=== PATIENT | male | born 1990 | race Caucasian/White ===

== ENCOUNTER 2016-05-12 11:57 | Emergency (ER) | payer OTHER ==
[2016-05-12] MEDS ORDERED: ONDANSETRON 4 MG/2 ML VIAL IVP STA (13:41)
[2016-05-12] MEDS ORDERED: SODIUM CHLORIDE 0.9% 1,000 ML IV ONE (13:41)
[2016-05-12] MEDS ORDERED: ONDANSETRON 4 MG/2 ML VIAL ONE (13:43)
== END 2016-05-12 14:37 | disposition home or self-care (01) ==
DX: K52.9 Noninfective gastroenteritis and colitis, unspecified (principal)

== ENCOUNTER 2016-11-25 00:15 | Outpatient (CLI) | payer OTHER | END 2016-11-25 00:16 | disposition critical access hospital (66) | LOC: EMS 00:15 | PROVIDERS: ATTEND Surgery | DX: R09.89 Other specified symptoms and signs involving the circulatory and respiratory systems (principal) | CPT/HCPCS: A0425; A0427 ==

== ENCOUNTER 2016-11-25 00:29 | Emergency (ER) | payer OTHER ==
[2016-11-25 01:16] LABS: BASOPHILS % (AUTO) 0.4 %; EOSINOPHILS # (AUTO) 0.2 10^3/uL (0.0-0.7); EOSINOPHILS % (AUTO) 1.9 %; HCT - HEMATOCRIT 45.1 % (42.0-52.0); HGB - HEMOGLOBIN 15.1 g/dL (14.0-18.0); LYMPHOCYTES # (AUTO) 3.5 10^3/uL (1.5-3.5); LYMPHOCYTES % (AUTO) 27.3 %; MEAN CORPUSCULAR HEMOGLOBIN 27.6 pg (27.0-31.0); MEAN CORPUSCULAR HGB CONC 33.4 g/dL (32.0-36.0); MEAN CORPUSCULAR VOLUME 82.5 fL (80.0-94.0); MONOCYTES # (AUTO) 0.9 10^3/uL (0.0-1.0); MONOCYTES % (AUTO) 6.8 %; NEUTROPHILS # (AUTO) 8.2 10^3/uL (1.5-6.6); NEUTROPHILS % (AUTO) 63.6 %; NUCLEATED RED BLOOD CELLS AUTO 0.1 /100WBC; RED BLOOD COUNT 5.47 10^6/uL (4.70-6.10); RED CELL DISTRIBUTION WIDTH 14.4 % (12.0-15.0); UNCORRECTED WHITE BLOOD COUNT 12.9 x10^3/uL; WHITE BLOOD COUNT 12.9 x10^3/uL (4.8-10.8)
[2016-11-25 01:18] LABS: ALBUMIN/GLOBULIN RATIO 1.1 (1.0-2.2); BILIRUBIN,TOTAL 0.3 mg/dL (0.2-1.0); BUN - BLOOD UREA NITROGEN 20 mg/dL (6-20); CARBON DIOXIDE - CO2 24 mmol/L (21-32); CHLORIDE 104 mmol/L (101-111); GFR - MDRD 90 (>89); GLUCOSE 177 mg/dL (70-100); LIPASE 24 U/L (22-51); POTASSIUM 3.5 mmol/L (3.5-5.0); SALICYLATE < 6.0 mg/dL; SODIUM 140 mmol/L (135-145); TOTAL PROTEIN 7.9 g/dL (6.7-8.2)
[2016-11-25 01:20] LABS: ACETAMINOPHEN < 10 ug/mL (10-30)
--- NOTE | 2016-11-25 01:21 | XRAY Preliminary Report ---
Exam: XR Chest 2 View PA/LAT IMPRESSION: Normal 2-view chest radiography. [facility] SITE ID: [id number]
--- NOTE | 2016-11-25 01:24 | XRAY Report ---
EXAM: CHEST RADIOGRAPHY EXAM DATE: 11/25/2016 01:00 AM. CLINICAL HISTORY: Hypoxia post vomiting. COMPARISON: None. TECHNIQUE: 2 views. FINDINGS: Lungs/Pleura: No focal opacities evident. No pleural effusion. No pneumothorax. Normal volumes. Mediastinum: Heart and mediastinal contours are unremarkable. Other: None. IMPRESSION: Normal 2-view chest radiography. [facility] Referring Provider Line: [phone] SITE ID: [id number]
--- NOTE | 2016-11-25 01:26 | ED Physician Documentation ---
PD HPI OVERDOSE - Stated complaint Stated Complaint: OD - Chief complaint Chief Complaint: General - History obtained from History obtained from: Patient, Family, EMS - History of Present Illness Timing - onset: Today Subtance(s) ingested: Multiple Associated symptoms: Decreased responsiveness, Altered mental status Contributing factors: Accidental Similar symptoms before: Has not had sx before Recently seen: Not recently seen - Additional information Additional information: Patient is a 25 year old male with no significant past medical history who is presenting to the emergency department for altered mental status. according to patient and ems, patient states that he took his tramadol as prescribed today. he took two pills at three different times today. Patient states that he also drank some whiskey and took a few shots. Patient went out to his car and passed out. Patient's friend started cpr even though the patient was breathing and had a pulse. Patient was treated with 1.6mg of narcan and proceeded to vomit. Upon initial evaluation in the emergency department patient was awake, alert but tachycardic and hypoxic. Review of Systems Constitutional: denies: Fever, Chills Eyes: denies: Loss of vision, Photophobia Ears: denies: Ear pain Nose: denies: Rhinorrhea / runny nose, Congestion Throat: denies: Oral lesions / sores, Sore throat Cardiac: denies: Chest pain / pressure, Palpitations Respiratory: denies: Dyspnea, Cough, Wheezing GI: reports: Nausea, Vomiting. denies: Abdominal Pain Skin: denies: Abrasion (s), Laceration (s) Neurologic: denies: Generalized weakness, Focal weakness Psychiatric: denies: Depressed, Suicidal, Homicidal PD PAST MEDICAL HISTORY - Past Surgical History Past Surgical History: No - Allergies Allergies/Adverse Reactions: Allergies Allergy/AdvReac Type Severity Reaction Status Date / Time No Known Drug Allergies Allergy Verified 05/12/16 12:10 - Social History Does the pt smoke?: No Smoking Status: Never smoker Does the pt drink ETOH?: Yes Does the pt have substance abuse?: No - Immunizations Immunizations are current?: Yes PD ED PE NORMAL - Vitals Vital signs reviewed: Yes - General General: Alert and oriented X 3, No acute distress - HEENT HEENT: Atraumatic, PERRL - Neck Neck: Supple, no meningeal sign - Respiratory Respiratory: Clear bilaterally - Abdomen Abdomen: Soft, Non tender, Non distended - Derm Derm: Normal color, Warm and dry, No rash - Extremities Extremities: No deformity - Neuro Neuro: Alert and oriented X 3, manager client 2-12 intact, No motor deficit, No sensory deficit, Normal speech - Psych Psych: Normal mood, Normal affect Results - Vitals Vitals: Vital Signs - 24 hr 11/25/16 11/25/16 11/25/16 00:33 00:59 01:29 Temperature 36.5 C Heart Rate 136 H 127 H 134 H Respiratory 18 19 23 Rate Blood Pressure 158/114 H 134/89 H 145/96 H O2 Saturation 81 L 97 94 11/25/16 02:58 Temperature Heart Rate 126 H Respiratory 14 Rate Blood Pressure 146/89 H O2 Saturation 95 Oxygen O2 Source Room air Oxygen Flow Rate 3 - EKG (time done) 0058 Rate: Rate (enter#) (126) Rhythm: Sinus tachycardia [place]: Normal Intervals: Normal NE QRS: Normal Ischemia: Normal ST segments Compare to prior EKG: Old EKG unavailable - Labs Labs: Laboratory Tests 11/25/16 11/25/16 11/25/16 00:20 00:20 00:20 WBC 12.9 H RBC 5.47 Hgb 15.1 Hct 45.1 MCV 82.5 MCH 27.6 MCHC 33.4 RDW 14.4 Plt Count 278 MPV 8.0 Neut # 8.2 H Lymph # 3.5 [place] # 0.9 Eos # 0.2 Baso # 0.0 Absolute Nucleated RBC 0.01 Nucleated RBCs 0.1 Sodium 140 Potassium 3.5 Chloride 104 Carbon Dioxide 24 Anion Gap 12.0 BUN 20 Creatinine 1.0 Estimated GFR (MDRD) 90 Glucose 177 H Calcium 9.0 Total Bilirubin 0.3 AST 26 ALT 24 Alkaline Phosphatase 84 Troponin I < 0.04 Total Protein 7.9 Albumin 4.2 Globulin 3.7 Albumin/Globulin Ratio 1.1 Lipase 24 Salicylates < 6.0 Acetaminophen < 10 L Ethyl Alcohol 17.5 - Rads (name of study) chest x-ray Radiology: Final report received (no acute disease process) PD MEDICAL DECISION MAKING - ED course Complexity details: reviewed old records, reviewed results, re-evaluated patient , considered differential, d/w patient, d/w family ED course: Patient was seen and examined at bedside. Patient was awake and alert but was hypoxic. ekg was performed which showed sinus tach. Patient's arrived who stated that someone dropped off some pills which were "muscle relaxers" but were likely opiates. Patient was observed in the emergency department for over two hours. Patient's hypoxia resolved but he remained tachycardic. Patient wanted to leave with his . he was awake, alert and oriented. Patient understood the risks of leaving and signed out ama. Departure - Departure Disposition: 07 Against Medical Advice Clinical Impression: Overdose Condition: Stable Instructions: ED Overdose Accidental
[2016-11-25] MEDS ORDERED: ONDANSETRON ODT 4 MG TABLET TL STA (02:53)
[2016-11-25 02:59] VITALS: BP 146/89
[2016-11-25] MEDS ORDERED: ONDANSETRON ODT 4 MG TABLET ONE (02:59)
== END 2016-11-25 03:52 | disposition left against medical advice (07) ==
LOC: EDUNIT# → ED 00:29 → SUPCPDRO 00:29 → ED 03:52
DX: T50.901A Poisoning by unspecified drugs, medicaments and biological substances, accidental (unintentional), initial encounter (principal); R00.0 Tachycardia, unspecified
CPT/HCPCS: 36415; 71020; 80053; 80307; 80320; 80329; 83690; 84484; 85025; 93005; 99284; Q0162

== ENCOUNTER 2016-12-06 09:24 | Outpatient (CLI) | payer OTHER ==
--- NOTE | 2016-12-06 16:12 | MRI Report ---
EXAM: RIGHT ELBOW MRI WITHOUT CONTRAST EXAM DATE: 12/06/2016 10:03 a.m. CLINICAL HISTORY: AD hyperextended right arm playing softball, pain. COMPARISON: None. TECHNIQUE: Multiplanar, multisequence T1-weighted and fluid-sensitive sequences of the elbow without contrast. Other: None. FINDINGS: Bones: No fractures or subluxations. No marrow edema. No bone lesions. Articular Cartilage: Unremarkable. Ligaments: The lateral ulnar collateral and radial collateral ligament and annular ligaments are inta ct. The ulnar collateral ligament is torn. Tendons: Common flexor tendon shows a high-grade partial-thickness tear involving about 85% of the te ndon thickness. Surrounding edematous changes are identified. Common extensor tendon is unremarkable. The distal biceps, brachialis, and triceps tendons are unremarkable. Musculature: Small amount of proximal muscular edema within the flexor carpi ulnaris and flexor digit orum superficialis. Other: The cubital tunnel and ulnar nerve are unremarkable. No effusion. The subcutaneous tissues are unremarkable. IMPRESSION: 1. The ulnar collateral ligament is torn. The common flexor tendon shows a high-grade partial-thickne ss tear involving about 85% of the tendon thickness with surrounding edematous changes. There is also a small amount of edema within the proximal aspects of the flexor carpi ulnaris and flexor digitorum superficialis muscles. 2. Triceps, biceps brachialis and common extensor tendons appear unremarkable. 3. No bony abnormalities. [facility] MUSCULOSKELET[facility] SECTION Referring Provider Line: [phone] SITE ID: [id number]
== END 2016-12-06 09:25 | disposition home or self-care (01) ==
LOC: DI 09:24
PROVIDERS: ATTEND Nurse Practitioner Family
DX: M25.521 Pain in right elbow (principal); S53.441A Ulnar collateral ligament sprain of right elbow, initial encounter; S56.211A Strain of other flexor muscle, fascia and tendon at forearm level, right arm, initial encounter

== ENCOUNTER 2017-12-03 11:02 | Outpatient (CLI) | payer OTHER ==
--- NOTE | 2017-12-03 16:12 | MRI Report ---
Reason: PAIN IN LEFT FOOT Procedure Date: 12/03/2017 Accession Number: [id number] / [id number] Procedure: MRI - Foot LT W/O CPT Code: FULL RESULT: EXAM: LEFT MIDFOOT MRI WITHOUT CONTRAST EXAM DATE: 12/03/2017 11:48 AM. CLINICAL HISTORY: Left foot pain. Concern for fifth metatarsal fracture. COMPARISON: None. TECHNIQUE: Multiplanar, multisequence T1-weighted and fluid-sensitive sequences of the midfoot without contrast. Other: None. FINDINGS: Bones: No fractures or subluxations. No marrow edema. No bone lesions. Articular Cartilage: Unremarkable. Ligaments: The visualized intertarsal, intermetatarsal, and tarsometatarsal ligaments are intact. This includes the Lisfranc ligament. The visualized collateral ligaments are intact. Tendons: The flexor and extensor tendons are unremarkable. Musculature: No edema or fatty atrophy. Other: No effusions. The visualized portion of the tarsal tunnel is unremarkable. Small amount of fluid at the third intermetatarsal bursa. The subcutaneous tissues are unremarkable. IMPRESSION: 1. Small amount of fluid at the third intermetatarsal bursa. 2. Otherwise, unremarkable MRI of the left midfoot. No evidence of fifth metatarsal fracture. [facility]CULOSKELET[facility] SECTION
== END 2017-12-03 11:03 | disposition home or self-care (01) ==
LOC: DI 11:02
PROVIDERS: ATTEND Family Medicine
DX: M79.672 Pain in left foot (principal)

== ENCOUNTER 2018-07-05 22:22 | Outpatient (CLI) | payer OTHER | END 2018-07-05 22:23 | disposition critical access hospital (66) | LOC: EMS 22:22 | PROVIDERS: ATTEND Surgery | DX: T50.991A Poisoning by other drugs, medicaments and biological substances, accidental (unintentional), initial encounter (principal); R09.2 Respiratory arrest | CPT/HCPCS: A0425; A0427 ==

== ENCOUNTER 2018-07-05 22:37 | Inpatient (IN) | payer OTHER ==
[2018-07-05] MEDS ORDERED: SODIUM CHLORIDE 0.9% 1,000 ML IV ONE (22:55)
[2018-07-05] MEDS ORDERED: ALBUTEROL NEB 2.5 MG/3 ML INH STA ×2 (22:55→23:58)
[2018-07-05] MEDS ORDERED: LIDOCAINE VISCOUS 2% 15 ML UDC MM STA (22:56)
[2018-07-05] MEDS ORDERED: MAG HYDROX/AL HYDROX/SIMETH 30 ML UDC PO STA (22:56)
--- NOTE | 2018-07-05 22:56 | ED Physician Documentation ---
PD HPI ALTERED MENTAL STATUS - Stated complaint Stated Complaint: OD - Chief complaint Chief Complaint: MHE - History obtained from History obtained from: Patient, Friend, EMS - History of Present Illness Timing - onset: How many minutes ago (30) Timing - duration: Minutes Timing - details: Abrupt onset Quality / character: Unresponsive (The patient reportedly became very somnolent about 45 minutes after taking a couple of pain pills for his right arm. He abruptly became somnolent and sleepy and then unresponsive. There is no report of seizure activity. EMS was called and on arrival of the police first responders, they found the patient apneic. He was given Narcan intranasal and had bag valve mask respirations. EMS arrived and the patient was at that point just awakening abruptly as they started to put a oral pharyngeal airway in. He was then awake and conversant. This was just a couple of minutes after the i ntranasal Narcan so it seemed to be causative of his improvement. He has been alert and conversant on route. He is having a lot of coughing and is congested and hypoxic as well as tachycardic. The patient states he felt okay earlier in the day and had been doing some activity cleaning out a garage area or such and so his arm had had surgery a month ago was hurting him but otherwise he was feeling well. He had taken the pain medicines a month ago after his surgery without any problems. Subsequently has started on gabapentin 2 weeks ago and had not taken any oxycodone since starting the gabapentin.) Associated symptoms: Dyspnea, Cough (since awakening from the syncope, not prior.). No: Fever, Headache Contributing factors: Recent med change (had Gabapentin 300 mg 4 times daily started 2 weeks ago. He had not had any pain pills until today since starting the gabapentin). No: Diabetic, Recent illness, Intoxicated, Substance abuse [place] status: Alert and oriented X 3, Ambulatory Treatment LEAD FRONT END DEVELOPER: Accucheck, Narcan, Airway management Similar symptoms before: Has not had sx before Recently seen: Clinic, Surgery (right elbow a month ago) Review of Systems Constitutional: denies: Fever, Chills Nose: denies: Rhinorrhea / runny nose, Congestion Throat: denies: Sore throat Cardiac: denies: Chest pain / pressure Respiratory: reports: Dyspnea, Cough, Hemoptysis (mild since arrival to the ER.). denies: Wheezing GI: denies: Abdominal Pain, Nausea, Vomiting, Diarrhea Skin: denies: Rash, Lesions Neurologic: denies: Generalized weakness, Focal weakness, Numbness PD PAST MEDICAL HISTORY - Past Medical History Past Medical History: No Cardiovascular: None Respiratory: None Neuro: None Endocrine/Autoimmune: None GI: None : None HEENT: None Psych: None Musculoskeletal: None, Other (right wlbow surgery a month ago) Derm: None - Past Surgical History Past Surgical History: Yes General: Other Ortho: Other - Allergies Allergies/Adverse Reactions: Allergies Allergy/AdvReac Type Severity Reaction Status Date / Time No Known Drug Allergies Allergy Verified 07/05/18 22:46 - Living Situation Living Arrangement: reports: At home - Social History Does the pt smoke?: Yes Smoking Status: Current every day smoker Does the pt drink ETOH?: Yes Does the pt have substance abuse?: No - Family History Family history: reports: Non contributory - Immunizations Immunizations are current?: Yes - POLST Patient has POLST: No PD ED PE NORMAL - Vitals Vital signs reviewed: Yes (hypoxic at 86-89%, improved with 4 lpm NC to 92%. Tachycardic 140s. ) - General General: Alert and oriented X 3, Well developed/nourished, Other (repetitive coughing with some tinge of blood, but clear otherwise. ) - HEENT HEENT: Ears normal, Pharynx benign, Other (no tongue nor lip lesions) - Neck Neck: Supple, no meningeal sign, No adenopathy - Cardiac Cardiac: No murmur, No rub. No: RRR (tachycardic at 140s) - Respiratory Respiratory: No respiratory distress. No: Clear bilaterally (fine crackle sounds both sides. Mild wheezing noted centrally. ) - Abdomen Abdomen: Soft, Non tender - Back Back: No CVA TTP - Derm Derm: Normal color - Extremities Extremities: No deformity, No tenderness to palpate, Normal ROM s pain, No edema, No calf tenderness / cord - Neuro Neuro: Alert and oriented X 3, No motor deficit, Normal speech Results - Vitals Vitals: Vital Signs - 24 hr 07/05/18 07/05/18 07/05/18 22:39 22:49 22:52 Temperature 36.8 C Heart Rate 142 H 142 H 144 H Respiratory 20 20 24 Rate Blood Pressure 157/105 H 157/105 H O2 Saturation 94 93 07/05/18 07/05/18 07/06/18 23:14 23:54 00:10 Temperature Heart Rate 149 H 138 H 142 H Respiratory 22 27 H 36 H Rate Blood Pressure 140/75 H O2 Saturation 92 95 07/06/18 07/06/18 07/06/18 00:20 00:36 01:37 Temperature Heart Rate 154 H 143 H 134 H Respiratory 26 H 31 H 26 H Rate Blood Pressure 122/85 H 115/56 L O2 Saturation 97 94 99 Oxygen O2 Source Simple Mask Oxygen Flow Rate 6 - Labs Labs: Laboratory Tests 07/05/18 07/05/18 07/05/18 23:00 23:00 23:00 WBC 19.2 H RBC 5.79 Hgb 16.3 Hct 48.2 MCV 83.3 MCH 28.2 MCHC 33.9 RDW 14.0 Plt Count 295 MPV 7.5 Neut # (Auto) 16.1 H Lymph # (Auto) 2.1 [place] # (Auto) 1.0 Eos # (Auto) 0.0 Baso # (Auto) 0.1 Absolute Nucleated RBC 0.01 Nucleated RBC % 0.0 Sodium 137 Potassium 3.3 L Chloride 104 Carbon Dioxide 23 Anion Gap 10.0 BUN 13 Creatinine 1.0 Estimated GFR (MDRD) 89 Glucose 152 H Calcium 8.4 L Total Bilirubin 0.4 AST 30 ALT 24 Alkaline Phosphatase 83 B-Natriuretic Peptide 11 Total Protein 7.4 Albumin 3.8 Globulin 3.6 Albumin/Globulin Ratio 1.1 Lipase 29 Urine Opiates Screen Ur Oxycodone Screen Urine Methadone Screen Ur Propoxyphene Screen Ur Barbiturates Screen Ur Tricyclics Screen Ur Phencyclidine Scrn Ur Amphetamine Screen U Methamphetamines Scrn U Benzodiazepines Scrn Urine Cocaine Screen U Cannabinoids Screen Ethyl Alcohol < 5.0 07/06/18 01:40 WBC RBC Hgb Hct MCV MCH MCHC RDW Plt Count MPV Neut # (Auto) Lymph # (Auto) [place] # (Auto) Eos # (Auto) Baso # (Auto) Absolute Nucleated RBC Nucleated RBC % Sodium Potassium Chloride Carbon Dioxide Anion Gap BUN Creatinine Estimated GFR (MDRD) Glucose Calcium Total Bilirubin AST ALT Alkaline Phosphatase B-Natriuretic Peptide Total Protein Albumin Globulin Albumin/Globulin Ratio Lipase Urine Opiates Screen NEGATIVE Ur Oxycodone Screen NEGATIVE Urine Methadone Screen NEGATIVE Ur Propoxyphene Screen NEGATIVE Ur Barbiturates Screen NEGATIVE Ur Tricyclics Screen NEGATIVE Ur Phencyclidine Scrn NEGATIVE Ur Amphetamine Screen POSITIVE H U Methamphetamines Scrn NEGATIVE U Benzodiazepines Scrn NEGATIVE Urine Cocaine Screen NEGATIVE U Cannabinoids Screen POSITIVE H Ethyl Alcohol - Rads (name of study) chest xray Radiology: Prelim report reviewed (diffuse infiltrative changes. No focal consolidation. ), EMP read contemporaneously, See rad report chest CT Radiology: Prelim report reviewed (bilateral widespread infiltrates c/w pneumonitis.), See rad report PD MEDICAL DECISION MAKING - ED course Complexity details: reviewed results (Chest x-ray shows widespread diffuse infiltrates which would be unusual for aspiration. Given the abrupt onset of trouble breathing subsequent to a hypoxic event with the Percocet, add consider the possibility of noncardiogenic pulmonary edema. He had been helping clean out her garage and such and says there was a lot of mold and dust so he could have had some underlying pneumonitis prior to the syncopal episode. However he denies feeling short of breath prior to it.), re-evaluated patient (He is slowly improving. Nebulizers allow for him to have increased sputum production. It is mostly clear phlegm with some blood tingeing. Consideration of posterior nasopharynx bleeding rather than bronchial though it does seem to be more in his sputum. His oxygenation slowly improved and is able to come down on the amount of supplemental oxygen. However he still remains quite tachycardic. About an hour and 10 minutes after arrival he started to get a little sleepy again and so was given a repeat dose of Narcan. He then woke up readily again. Given the consideration of the Percocet last since a few hours as well as the concern for noncardiogenic pulmonary edema from the narcotic effect, I would place him on Narcan drip to help benefit this. He was also given a dose of steroids for the appearance of pneumonitis given possible aspiration.), considered differential (He is awake and alert now after being apneic post normal dose of prescription oxycodone. He had also started on gabapentin 2 weeks ago and the not taking any pain pills since that time. Presume a combined effect of the 2-lead to a profound effect from the narcotic and subsequent apnea and hypoxia. He did have bag valve mask ventilations for a minute or so or more. He is now hypoxic and tachycardic but with alertness and able to speak. He is coughing up some sputum with blood tingeing. I am concerned for aspiration pneumonitis. Also consider the possibility of noncardiogenic pulmonary edema given some diffuse haziness on chest x-ray. His BNP is not elevated but that would be consistent with noncardiogenic cause. He was starting to get a little bit sleepy again after about an hour and 20 minutes on arrival and given a repeat dose of Narcan. Given the consideration for noncardiogenic pulmonary edema, I might consider a Narcan drip. I will talk with the hospitalist.), d/w patient Departure - Departure Disposition: 66 [facility] DC/Xfer Clinical Impression: Aspiration pneumonitis, Hypoxia Syncope Qualifiers: Syncope type: unspecified Qualified Code(s): R55 - Syncope and collapse Opiate or related narcotic overdose Qualifiers: Encounter type: initial encounter Injury intent: accidental or unintentional Qualified Code(s): T40.601A - Poisoning by unspecified narcotics, accidental (unintentional), initial encounter Condition: Stable Record reviewed to determine appropriate education?: Yes
[2018-07-05 23:07] LABS: BASOPHILS # (AUTO) 0.1 10^3/uL (0.0-0.1); BASOPHILS % (AUTO) 0.4 %; EOSINOPHILS % (AUTO) 0.1 %; HGB - HEMOGLOBIN 16.3 g/dL (14.0-18.0); LYMPHOCYTES # (AUTO) 2.1 10^3/uL (1.5-3.5); LYMPHOCYTES % (AUTO) 10.7 %; MEAN CORPUSCULAR HEMOGLOBIN 28.2 pg (27.0-31.0); MEAN CORPUSCULAR HGB CONC 33.9 g/dL (32.0-36.0); MEAN CORPUSCULAR VOLUME 83.3 fL (80.0-94.0); MEAN PLATELET VOLUME 7.5 fL (7.4-11.4); MONOCYTES % (AUTO) 5.3 %; NEUTROPHILS # (AUTO) 16.1 10^3/uL (1.5-6.6); NEUTROPHILS % (AUTO) 83.5 %; PLT - PLATELET COUNT 295 10^3/uL (130-450); RED BLOOD COUNT 5.79 10^6/uL (4.70-6.10); WHITE BLOOD COUNT 19.2 x10^3/uL (4.8-10.8)
[2018-07-05 23:19] LABS: ALBUMIN 3.8 g/dL (3.2-5.5); ALBUMIN/GLOBULIN RATIO 1.1 (1.0-2.2); ALKALINE PHOSPHATASE 83 IU/L (42-121); ALT ALANINE AMINOTRANSFERASE 24 IU/L (10-60); AST ASPARTATE AMINOTRANSFERASE 30 IU/L (10-42); BILIRUBIN,TOTAL 0.4 mg/dL (0.2-1.0); BUN - BLOOD UREA NITROGEN 13 mg/dL (6-20); CALCIUM 8.4 mg/dL (8.5-10.3); CARBON DIOXIDE - CO2 23 mmol/L (21-32); CHLORIDE 104 mmol/L (101-111); GFR - MDRD 89 (>89); GLUCOSE 152 mg/dL (70-100); LIPASE 29 U/L (22-51); SODIUM 137 mmol/L (135-145); TOTAL PROTEIN 7.4 g/dL (6.7-8.2)
--- NOTE | 2018-07-05 23:20 | XRAY Report ---
Reason: chest pain Procedure Date: 07/05/2018 Accession Number: [id number] / [id number] Procedure: XR - Chest 1 View X-Ray CPT Code: 52060 FULL RESULT: EXAM: CHEST RADIOGRAPHY EXAM DATE: 07/05/2018 11:04 PM. CLINICAL HISTORY: Chest pain. COMPARISON: CHEST 2 VIEW PA/LAT 11/25/2016 12:45 AM. TECHNIQUE: 1 view. FINDINGS: Lungs/Pleura: Bilateral predominantly upper lobe infiltrates. No effusion or pneumothorax. Mediastinum: Within exam limitations, the cardiomediastinal contour is normal. Other: None. IMPRESSION: Bilateral airspace disease, with upper lobe predominance. No cardiomegaly or effusion. [facility]
[2018-07-05] MEDS ORDERED: DEXAMETHASONE 10 MG/ML VIAL IVP STA (23:48)
[2018-07-05] MEDS ORDERED: NALOXONE 0.4 MG/ML VIAL IVP STA (23:58)
[2018-07-06] MEDS ORDERED: NALOXONE 2 MG in SODIUM CHLORIDE 0.9% 495 ML IV STA (00:18)
[2018-07-06] MEDS ORDERED: NALOXONE 0.4 MG/ML VIAL ONE ×2 (00:33→00:35)
[2018-07-06] MEDS ORDERED: IOVERSOL 320 100 ML VIAL IVP ONE ×2 (00:47→01:32)
[2018-07-06 01:42] LABS: MUDS CUTOFF CONCENTRATIONS CUTOFF CONC BELOW:
--- NOTE | 2018-07-06 01:43 | CT Report ---
Reason: cough/ ? aspiration pneumonitis Procedure Date: 07/06/2018 Accession Number: [id number] / [id number] Procedure: CT - CHEST W CPT Code: FULL RESULT: EXAM: CT CHEST EXAM DATE: 07/06/2018 01:30 AM. CLINICAL HISTORY: Cough/ ? aspiration pneumonitis. COMPARISONS: None. TECHNIQUE: Routine helical CT imaging was performed through the chest. IV contrast: 80 mL Optiray 320. Reconstructions: Coronal and sagittal. In accordance with CT protocol optimization, one or more of the following dose reduction techniques were utilized for this exam: automated exposure control, adjustment of mA and/or KV based on patient size, or use of iterative reconstructive technique. FINDINGS: Lungs/Pleura: Widespread bilateral infiltrates, with upper lobe predominance. No effusion or pneumothorax. Mediastinum: Normal. No adenopathy or masses. The heart and great vessels are normal. Bones: Unremarkable. Visualized Abdomen: Unremarkable. Other: None. IMPRESSION: Bilateral widespread infiltrates, with upper lobe predominance. The distribution would be atypical for aspiration. Differential considerations would include hypersensitivity pneumonitis, eosinophilic granuloma, atypical infections, sarcoidosis, silicosis. [facility]
[2018-07-06 02:02] LABS: AMPHETAMINE SCREEN,URINE POSITIVE (NEGATIVE); BENZODIAZEPINES SCREEN, URINE NEGATIVE (NEGATIVE); COCAINE SCREEN URINE NEGATIVE (NEGATIVE); METHADONE SCREEN, URINE NEGATIVE (NEGATIVE); METHAMPHETAMINES SCREEN, URINE NEGATIVE (NEGATIVE); OPIATE SCREEN, URINE NEGATIVE (NEGATIVE); OXYCODONE SCREEN, URINE NEGATIVE (NEGATIVE); PROPOXYPHENE SCREEN, URINE NEGATIVE (NEGATIVE); TRICYCLIC ANTIDEPRESSANT,URINE NEGATIVE (NEGATIVE)
[2018-07-06] MEDS ORDERED: PIPERACILLIN/TAZOBACTAM 3.375 GM in SODIUM CHLORIDE 0.9% MINIBAG 100 ML IV STA (02:07)
[2018-07-06] MEDS ORDERED: SODIUM CHLORIDE FLUSH 0.9% 10 ML SYRINGE IVP PRN (02:08)
[2018-07-06] MEDS ORDERED: ONDANSETRON 4 MG/2 ML VIAL IVP PRN (02:08)
[2018-07-06] MEDS ORDERED: ACETAMINOPHEN 325 MG TABLET PO PRN (02:08)
[2018-07-06] MEDS ORDERED: LORazepam 1 MG TABLET PO PRN (02:18)
[2018-07-06 02:43] LABS: BASOPHILS % (AUTO) 0.3 %; HGB - HEMOGLOBIN 16.2 g/dL (14.0-18.0); LYMPHOCYTES % (AUTO) 1.9 %; MEAN CORPUSCULAR HGB CONC 33.7 g/dL (32.0-36.0); MEAN CORPUSCULAR VOLUME 83.1 fL (80.0-94.0); MEAN PLATELET VOLUME 7.5 fL (7.4-11.4); MONOCYTES % (AUTO) 5.3 %; NEUTROPHILS % (AUTO) 92.5 %; PLT - PLATELET COUNT 279 10^3/uL (130-450); RED BLOOD COUNT 5.77 10^6/uL (4.70-6.10); RED CELL DISTRIBUTION WIDTH 14.4 % (12.0-15.0); WHITE BLOOD COUNT 30.8 x10^3/uL (4.8-10.8)
[2018-07-06 02:50] LABS: INR 1.2 (0.8-1.2); PT - PROTHROMBIN TIME 13.3 secs (9.9-12.6)
[2018-07-06 02:55] LABS: ALBUMIN 4.2 g/dL (3.2-5.5); ALBUMIN/GLOBULIN RATIO 1.2 (1.0-2.2); BILIRUBIN,TOTAL 0.8 mg/dL (0.2-1.0); CALCIUM 8.7 mg/dL (8.5-10.3); CREATININE 0.9 mg/dL (0.6-1.2); TOTAL PROTEIN 7.6 g/dL (6.7-8.2)
[2018-07-06] MEDS ORDERED: NALOXONE 2 MG in SODIUM CHLORIDE 0.9% 495 ML IV SCH (03:00)
[2018-07-06] MEDS ORDERED: MAGNESIUM SULFATE 2 GRAM 2 GM/50 ML BAG IV ONE (03:00)
[2018-07-06 03:06] LABS: ABNORMAL LYMPHS % (MANUAL) 0 %
[2018-07-06 03:07] LABS: BAND NEUTROPHILS % (MANUAL) 20 %; LYMPHOCYTES # (MANUAL) 0.3 10^3/uL (1.5-3.5); LYMPHOCYTES % (MANUAL) 1 %; MONOCYTES # (MANUAL) 1.5 10^3/uL (0.0-1.0); NEUTROPHILS % (MANUAL) 74 %
[2018-07-06 03:08] LABS: PLATELET ESTIMATE, MANUAL NORMAL (130-450,000) (NORMAL); RBC MORPHOLOGY (MULTIPLE) NORMAL APPEARANCE (NORMAL)
--- NOTE | 2018-07-06 03:41 | HISTORY & PHYSICAL EXAMINATION ---
Chief Complaint - Chief Complaint Chief Complaint: unresponsive History of Present Illness - Admitted From Admitted From:: [facility] ED - History Obtained From Records Reviewed: yes History obtained from: patient - History of Present Illness HPI Comment/Other: Patient seen on 07/06/18 at 00:20 am Patient is a 27 y/o male who presented to the ED via EMS. He was at home watching a video when he suddenly stopped breathing an passed out. He describes that one minute he was watching a video and the next minute EMS was waking him up. His friend who was sitting next to him called EMS. He was administered narcan nasally to which he responded. When EMS arrived the all started administering oxygenation using an ambu-bag. It appears he aspirated as a result. Upon arrival in the ED he was awake, however he has been hypoxic. Despite being on 4L oxygen via nasal canula, his O2Sat's drop to the 80's. He also slowly starts nodding of to sleep. Consequently he was placed on a narcan drip. He has also been tachycardic with a heart rate into the 150's. He has also been coughing up aspirated content which appears mixed with frothy blood secretions. As a result of his presentation, he is being admitted for further management. He reports that he had been prescribe percocet 5/325 for an injury he sustained to his left elbow while playing soft ball. He was also put on gabapentin recently by his therapist for ?anxiety. His elbow has been hurting lately so he took 2 tablets of the pain medication. He denies chest pain or abdominal pain. He reports being nauseous History - Past Medical History Cardiovascular: reports: None Respiratory: reports: None Neuro: reports: None Endocrine/Autoimmune: reports: None GI: reports: None : reports: None HEENT: reports: None Psych: reports: Anxiety, ADD/ADHD Musculoskeletal: reports: None, Other (right wlbow surgery a month ago) Derm: reports: None MRSA Hx?: No - Past Surgical History General: reports: Other Ortho: reports: Other (left elbow) - Family & Social History Living arrangement: At home Living Situation: With spouse/s.o. Social History Notes: He is in the [employer]. lives at home with his . He smokes 1/2 ppd for a couple years now. He says he drinks 2-3 drinks a week. However it is reported that he drink heavily daily. This is as a coping mechanism because he is going through some marital problems. He uses marijuana - Substance History Use: Uses substance without health or social issues: Alcohol - POLST Patient has POLST: No POLST Status: Full Code Meds/Allgy - Allergies Allergies/Adverse Reactions: Allergies Allergy/AdvReac Type Severity Reaction Status Date / Time No Known Drug Allergies Allergy Verified 07/05/18 22:46 Review of Systems - Constitutional Constitutional: denies: Fatigue, Fever, Chills, Diaphoresis, Night sweats - Eyes Eyes: denies: Blurred vision, Vision loss, Dipolpia - Ears, Nose & Throat Ears, Nose & Throat: denies: Vertigo, Nasal pain, Nasal discharge, Sore throat, Hoarseness - Cardiovascular Cariovascular: denies: Irregular heart rate, Palpitations, Chest pain, Edema, Lightheadedness, Exertional dyspnea, Decr. exercise tolerance - Respiratory Respiratory: reports: Cough, Sputum production, Wheezing, Hemoptysis, SOB at rest - Gastrointestinal Gastrointestinal: reports: Nausea, Vomiting. denies: Abdominal pain, Abdominal distention, Constipation, Diarrhea, Reflux/heartburn - Genitourinary Genitourinary: denies: Dysuria, Frequency, Urgency, Hematuria - Musculoskeletal Musculoskeletal: reports: Joint pain (left elbow). denies: Back pain - Integumentary Integumentary: denies: Rash, Pruritis, Lesions - Neurological Neurological: denies: General weakness, Headache, Dizziness - Psychiatric Psychiatric: reports: Depression, Anxiety - Endocrine Endocrine: denies: Polyuria, Polydypsia - Hematologic/Lymphatic Hematologic/Lymphatic: denies: Anemia, Bruising, Petechiae Prior Level of Functionality: Pt is in the [employer] He is independent of activities of daily living Exam - Vital Signs Vital Signs: Vital Signs x48h Temp Pulse Resp BP Pulse Ox 07/06/18 02:24 144 H 26 H 133/86 H 28 L 07/06/18 01:37 134 H 26 H 99 07/06/18 00:36 143 H 31 H 115/56 L 94 07/06/18 00:20 154 H 26 H 122/85 H 97 07/06/18 00:10 142 H 36 H 95 07/05/18 23:54 138 H 27 H 140/75 H 92 07/05/18 23:14 149 H 22 07/05/18 22:52 144 H 24 07/05/18 22:49 142 H 20 157/105 H 93 07/05/18 22:39 36.8 C 142 H 20 157/105 H 94 - Physical Exam General Appearance: positive: Alert, Moderate distress, Lethargic Eyes Bilateral: positive: Normal inspection, PERRL, EOMI ENT: positive: ENT inspection nml, Pharynx nml, No signs of dehydration Neck: positive: Nml inspection, No JVD, Trachea midline Respiratory: positive: Chest non-tender, Wheezes. negative: Breath sounds nml Cardiovascular: positive: No murmur, Tachycardia Abdomen: positive: Non-tender, No organomegaly, Nml bowel sounds, No distention. negative: Guarding, Rebound Back: positive: Nml inspection Skin: positive: Color nml, No rash, Warm, Dry Extremities: positive: Non-tender, Nml appearance, No pedal edema Neurologic/Psychiatric: positive: Oriented x3 Sepsis Event Note (H) - Evaluation Current Stage of Sepsis: Sepsis Possible source of Sepsis: positive: Pulmonary - Sepsis Criteria Sepsis Criteria: Recorded Heart Rate greater than 90 bpm, WBC count greater than 12,000 or less than 4000 Conclusion/Plan - Problem List (1) Opiate or related narcotic overdose Conclusion/Plan: It is thought that patient's combination of percocet and gabapentin resulted in him passing out The absence of opiates in the urine drug screen is likely as a result of a short time between ingestion and testing. Patient on a narcan drip and under close monitoring in the ICU Qualifiers: Encounter type: initial encounter Injury intent: accidental or unintentional Qualified Code(s): T40.601A - Poisoning by unspecified narcotics, accidental (unintentional), initial encounter (2) Aspiration pneumonitis Conclusion/Plan: Likely 2/2 to syncopal episode and resuscitation attempt Patient given dexamethasone in the ED. Solumedrol 40mg IV tid ordered Blood cultures drawn Patient receiving zosyn q6hrs for potential aspiration pneumonia On supplemental oxygen (3) ADHD (attention deficit hyperactivity disorder) Conclusion/Plan: On adderall (4) Alcohol abuse Conclusion/Plan: CIWA ordered in anticipation of potential withdrawal - Lab Results Fish Bones: 07/06/18 02:38 07/06/18 02:38 Core Measures - Anticipated LOS I expect patient to be DC'd or transferred within 96 hours.: Yes - DVT/VTE - Prophylaxis VTE/DVT Device ordered at admit?: Yes VTE/DVT Prophylaxis med ordered at admit?: No Not Ordered - Medical Reason: Contraindicated
[2018-07-06] MEDS: PIPERACILLIN/TAZOBACTAM 3.375 GM in SODIUM CHLORIDE 0.9% MINIBAG 100 ML IV SCH ×2 (04:55→10:45)
[2018-07-06] MEDS ORDERED: methylPREDNISolone SUCCINATE 40 MG/ML VIAL IVP SCH (06:00)
[2018-07-06 07:28] LABS: BASOPHILS % (AUTO) 0.1 %; HGB - HEMOGLOBIN 15.9 g/dL (14.0-18.0); LYMPHOCYTES % (AUTO) 1.9 %; MEAN CORPUSCULAR HEMOGLOBIN 27.7 pg (27.0-31.0); MEAN CORPUSCULAR HGB CONC 32.5 g/dL (32.0-36.0); MEAN CORPUSCULAR VOLUME 85.3 fL (80.0-94.0); MEAN PLATELET VOLUME 8.6 fL (7.4-11.4); MONOCYTES % (AUTO) 2.2 %; NEUTROPHILS % (AUTO) 95.8 %; PLT - PLATELET COUNT 287 10^3/uL (130-450); RED BLOOD COUNT 5.72 10^6/uL (4.70-6.10); RED CELL DISTRIBUTION WIDTH 14.3 % (12.0-15.0); WHITE BLOOD COUNT 31.7 x10^3/uL (4.8-10.8)
[2018-07-06 07:29] LABS: CALCIUM 8.8 mg/dL (8.5-10.3); CREATININE 0.9 mg/dL (0.6-1.2)
[2018-07-06 07:33] LABS: ABNORMAL LYMPHS % (MANUAL) 0 %
[2018-07-06] MEDS ORDERED: SODIUM CHLORIDE FLUSH 0.9% 10 ML SYRINGE IVP SCH (09:00)
[2018-07-06] MEDS ORDERED: MULTIVITAMIN 10 ML, THIAMINE INJ 100 MG, FOLIC ACID INJ 1 MG in SODIUM CHLORIDE 0.9% 1,... IV SCH (09:00)
[2018-07-06 09:33] LABS: BAND NEUTROPHILS % (MANUAL) 10 %; LYMPHOCYTES % (MANUAL) 3 %; NEUTROPHILS # (MANUAL) 29.8 10^3/uL (1.5-6.6); NEUTROPHILS % (MANUAL) 84 %
[2018-07-06 09:34] LABS: DIFFERENTIAL COMMENT MANUAL DIFFERENTIAL
--- NOTE | 2018-07-06 12:13 | Discharge Plan ---
Discharge Plan Disposition: Home, Self Care Condition: Good Prescriptions: Amox/Clav 875/125 [Augmentin] 1 each PO Q12H #20 tablet busPIRone [Buspar] 10 mg PO TID #90 tablet Prednisone 10 mg PO DAILY #14 tab.ds.pk Saccharomyces Boulardii [Florastor] 250 mg PO BID #60 capsule Diet: Regular Activity Restrictions: No Restrictions Shower Restrictions: No Driving Restrictions: No Additional Instructions or Follow Up instructions: You were admitted for an unresponsive episode and treated for aspiration pneumonia from a witnessed aspiration event. Please continue the antibiotics at home for the next 10 days. The cause of this episode is concerning and appears to be a separate problem from your pneumonia. A likely triggering culprit is the gabapentin, so I have changed this to Buspar The pattern of infiltrates on your imaging and your very high white blood cell count is suspicious for tuberculosis. You will need 3 negative sputum samples to rule this out, and in the meantime, plan on wearing a mask when you are around people. This will need close follow up with a specialist. I have spoken to a chief psychologist about your case. Please see your PCP within a few days to obtain further sputum samples. No Smoking: If you smoke, Please STOP! Call for help.
[2018-07-06 12:21] VITALS: BP 143/87
[2018-07-06] MEDS ORDERED: busPIRone 5 MG TABLET PO SCH (13:00)
--- NOTE | 2018-07-06 13:44 | DISCHARGE SUMMARY ---
Discharge Summary Admit Date: 07/06/18 Discharge Date: 07/06/18 Discharging Provider: ALICJA Vaz Primary Care Provider: Bienvenido Gong Code Status: Attempt Resuscitation Condition at Discharge: Good Discharge Disposition: 01 Home, Self Care - DIAGNOSES Admission Diagnoses: Poisoning by unsp narcotics, accidental, init (T40.601A) Pneumonitis due to inhalation of food and vomit (J69.0) Attention-deficit hyperactivity disorder, unspecified type (F90.9) Alcohol abuse, uncomplicated (F10.10) Anxiety and depression (F41.9) Discharge Diagnoses with Status of Each Condition: Poisoning by unsp narcotics, accidental, init (T40.601A) Prescribed gabapentin, patient admitted to taking a narcotic, but none found in drug screening, resolved Pneumonitis due to inhalation of food and vomit (J69.0) Witnessed aspiration, imaging concerning for TB, so suggest 3 negative AFB, none collected upon discharge due to patient's urgency to leave. Continued on oral antibiotics, steroid taper for treatment of aspiration pneumonia Attention-deficit hyperactivity disorder, unspecified type (F90.9) chronic, stable Alcohol abuse, uncomplicated (F10.10) unconfirmed amount, no s/s of withdrawal Anxiety and depression (F41.9) situational, changed gabapentin to buspar due to events leading up to this admission in which he lost consciousness Tobacco dependence (F17.200) chronic, refused nicotine patch Marijuana dependence (F12.20) denies use, found in urine drug screen - HPI History of Present Illness: HPI per Dr. Hernandez (altered): Patient seen on 07/06/18 at 00:20 am Patient is a 27 y/o male who presented to the ED via EMS. He was at home watching a video when he suddenly stopped breathing an passed out. He describes that one minute he was watching a video and the next minute EMS was waking him up. His friend who was sitting next to him called EMS. He was administered narcan intra-nasally to which he responded. When EMS arrived the all started administering oxygenation using an ambu-bag. It appears he aspirated as a result. Upon arrival in the ED he was awake, however he has been hypoxic. Despite being on 4L oxygen via nasal canula, his O2Sat's drop to the 80's. He also slowly started nodding of to sleep. Consequently he was placed on a narcan drip. He has also been tachycardic with a heart rates into the 150's and was coughing up aspirated content which appears mixed with frothy blood secretions. As a result of his presentation, he was admitted for further management. He reports that he had been prescribed percocet 5/325 for an injury he sustained to his left elbow while playing soft ball. He was also put on gabapentin recently by his therapist for anxiety and situational depression related to his becoming by another man which was proven per paternity testing which cost him $2000. He has been from his for the past few weeks and considered to be "couch surfing" on friend's couches since that time. He also has a 3-year old Beckie with his . He states that they are finally getting along lately for their daughter's sake. He believes his is due in October. On initial exam he denied chest pain or abdominal pain, but admitted to feeling nauseous. He has a WBC count of 19.2 with no other abnormalities. A MUDDs urine screen is + for marijuana and amphetamines (prescribed adderrall). He will be admitted to the ICU on a narcan drip and treated for aspiration pneumonia. Social work will evaluate to rule out suicidal ideation, which may have caused this event. - HOSPITAL COURSE Hospital Course: José Miguel was weaned of oxygen, was in no respiratory distress and had only a minimal cough on exam prior to discharge. Upon reviewing his chest CT, a phone call was made to Pulmonary to review details with him having an increased WBC count, and the pattern of bilateral lobe infiltrates on imaging. He advised us to rule out tuberculosis by 3 negative sputum tests, but the patient would no longer stay in the hospital due to his home situation. He was given a box of masks until this is ruled out, and told to have prompt follow up with his PCP regarding this further testing that needs to occur. Discussion about what may have led to this event prompted a change from his gabapentin to buspar to more specifically treat his anxiety. Antibiotics and a steroid taper was sent to the pharmacy to complete treatment for aspiration pneumonia and he was taught about the importance of prompt follow up and given hand-outs. He was very anxious to return home and was transported via his 's private car to their home for the next few days. - ALLERGIES Allergies/Adverse Reactions: Allergies Allergy/AdvReac Type Severity Reaction Status Date / Time No Known Drug Allergies Allergy Verified 07/05/18 22:46 - MEDICATIONS Home Medications: Ambulatory Orders Medication Instructions Recorded Confirmed Amox/Clav 875/125 [Augmentin] 1 each PO Q12H #20 tablet 07/06/18 Dextroamphetamine/Amphetamine 10 mg PO 1400 07/06/18 07/06/18 [Adderall 10 mg Tablet] Dextroamphetamine/Amphetamine 25 mg PO DAILY 07/06/18 07/06/18 [Adderall Xr 25 mg Capsule] Prednisone 10 mg PO DAILY #14 tab.ds.pk 07/06/18 Saccharomyces Boulardii [Florastor] 250 mg PO BID #60 capsule 07/06/18 busPIRone [Buspar] 10 mg PO TID #90 tablet 07/06/18 - PHYSICAL EXAM AT DISCHARGE General Appearance: positive: No acute distress, Alert Eyes Bilateral: positive: Normal inspection, PERRL ENT: positive: ENT inspection nml, Pharyngeal erythema Neck: positive: Thyroid nml, No JVD, Trachea midline Respiratory: positive: Chest non-tender, No respiratory distress, Other (bilateral crackles, no wheezing) Cardiovascular: positive: Regular rate & rhythm, No murmur, No gallop, Tachycardia Peripheral Pulses: positive: 2+ Abdomen: positive: Non-tender, Nml bowel sounds Back: positive: Nml inspection Skin: positive: Color nml, No rash, Warm, Dry Extremities: positive: Non-tender, Full ROM, Nml appearance, No pedal edema Neurologic/Psychiatric: positive: Oriented x3, CN's nml (2-12), Motor nml, Sensation nml, Depressed mood/affect Reflexes: Bicep (R): 3+, Bicep (L): 3+ - LABS Result Diagrams: 07/06/18 05:38 07/06/18 05:38 - DIAGNOSTIC IMAGING Diagnostic Imaging Results: Final report reviewed Diagnostic Imaging Results Comments: EXAM: CT CHEST EXAM DATE: 07/06/2018 01:30 AM IMPRESSION: Bilateral widespread infiltrates, with upper lobe predominance. The distribution would be atypical for aspiration. Differential considerations would include hypersensitivity pneumonitis, eosinophilic granuloma, atypical infections, sarcoidosis, silicosis. - SEPSIS Current Stage of Sepsis: Sepsis Possible source of Sepsis: Pulmonary Sepsis Criteria: Recorded Heart Rate greater than 90 bpm, WBC count greater than 12,000 or less than 4000 - FOLLOW UP Follow Up: Disposition: Home, Self Care Prescriptions: Amox/Clav 875/125 [Augmentin] 1 each PO Q12H #20 tablet busPIRone [Buspar] 10 mg PO TID #90 tablet Prednisone 10 mg PO DAILY #14 tab.ds.pk Saccharomyces Boulardii [Florastor] 250 mg PO BID #60 capsule Additional Instructions or Follow Up instructions:You were admitted for an unresponsive episode and treated for aspiration pneumonia from a witnessed aspiration event. Please continue the antibiotics at home for the next 10 days. The cause of this episode is concerning and appears to be a separate problem from your pneumonia. A likely triggering culprit is the gabapentin, so I have changed this to Buspar The pattern of infiltrates on your imaging and your very high white blood cell count is suspicious for tuberculosis. You will need 3 negative sputum samples to rule this out, and in the meantime, plan on wearing a mask when you are around people. This will need close follow up with a specialist. I have spoken to a hydrochloric acid operator about your case. Please see your PCP within a few days to obtain further sputum samples. - TIME SPENT Time Spent in Discharge (Minutes): 35
== END 2018-07-06 12:50 | disposition home or self-care (01) | DRG 871 ==
LOC: EDUNIT# → ED 22:37 → ICU 07-06 02:08
PROVIDERS: ADMIT Internal Medicine; ATTEND Nurse Practitioner
DX: A41.9 Sepsis, unspecified organism (principal); J69.0 Pneumonitis due to inhalation of food and vomit; T40.2X1A Poisoning by other opioids, accidental (unintentional), initial encounter; T42.6X1A Poisoning by other antiepileptic and sedative-hypnotic drugs, accidental (unintentional), initial encounter; F17.200 Nicotine dependence, unspecified, uncomplicated; R55 Syncope and collapse; F90.9 Attention-deficit hyperactivity disorder, unspecified type; F10.10 Alcohol abuse, uncomplicated; F12.20 Cannabis dependence, uncomplicated; F41.9 Anxiety disorder, unspecified; F32.9 Major depressive disorder, single episode, unspecified; Z79.52 Long term (current) use of systemic steroids; R09.02 Hypoxemia
CPT/HCPCS: 36415; 71045; 71260; 80048; 80053; 80306; 80320; 83605; 83690; 83880; 85025; 85610; 87040; 87150; 94640; 96374; 96375; 99284; A9270; J3411; Q9967; 99285

== ENCOUNTER 2018-10-03 00:13 | Outpatient (CLI) | payer OTHER | END 2018-10-03 00:14 | disposition critical access hospital (66) | LOC: EMS 00:13 | PROVIDERS: ATTEND Surgery | DX: R45.851 Suicidal ideations (principal) | CPT/HCPCS: A0425; A0429 ==

== ENCOUNTER 2018-10-03 00:28 | Emergency (ER) | payer OTHER ==
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
[2018-10-03] MEDS ORDERED: SODIUM CHLORIDE 0.9% 1,000 ML IV ONE (00:46)
[2018-10-03 00:57] LABS: BASOPHILS # (AUTO) 0.1 10^3/uL (0.0-0.1); BASOPHILS % (AUTO) 0.6 %; EOSINOPHILS # (AUTO) 0.3 10^3/uL (0.0-0.7); EOSINOPHILS % (AUTO) 2.4 %; HGB - HEMOGLOBIN 15.5 g/dL (14.0-18.0); LYMPHOCYTES # (AUTO) 3.6 10^3/uL (1.5-3.5); MEAN CORPUSCULAR HEMOGLOBIN 27.8 pg (27.0-31.0); MEAN CORPUSCULAR HGB CONC 33.7 g/dL (32.0-36.0); MEAN CORPUSCULAR VOLUME 82.4 fL (80.0-94.0); MEAN PLATELET VOLUME 9.3 fL (7.4-11.4); MONOCYTES # (AUTO) 1.1 10^3/uL (0.0-1.0); MONOCYTES % (AUTO) 8.6 %; NEUTROPHILS # (AUTO) 7.7 10^3/uL (1.5-6.6); NEUTROPHILS % (AUTO) 59.8 %; PLT - PLATELET COUNT 302 10^3/uL (130-450); RED BLOOD COUNT 5.58 10^6/uL (4.70-6.10); RED CELL DISTRIBUTION WIDTH 13.5 % (12.0-15.0); WHITE BLOOD COUNT 12.9 x10^3/uL (4.8-10.8)
[2018-10-03 00:58] LABS: BILIRUBIN,URINE NEGATIVE (NEGATIVE); GLUCOSE, URINE (UA) NEGATIVE (NEGATIVE); KETONES,URINE (UA) NEGATIVE (NEGATIVE); LEUKOCYTE ESTERASE, URINE NEGATIVE (NEGATIVE); MUDS CUTOFF CONCENTRATIONS CUTOFF CONC BELOW:; NITRITE,URINE NEGATIVE (NEGATIVE); OCCULT BLOOD,URINE TRACE-LYSE (NEGATIVE); PROTEIN,URINE NEGATIVE (NEGATIVE); UROBILINOGEN,URINE 0.2 (NORMAL) E.U./dL (NORMAL)
[2018-10-03 01:09] LABS: ACETAMINOPHEN < 10 ug/mL (10-30); ALBUMIN 4.7 g/dL (3.2-5.5); ALBUMIN/GLOBULIN RATIO 1.3 (1.0-2.2); ALKALINE PHOSPHATASE 89 IU/L (42-121); ALT ALANINE AMINOTRANSFERASE 20 IU/L (10-60); AST ASPARTATE AMINOTRANSFERASE 22 IU/L (10-42); BILIRUBIN,TOTAL 0.4 mg/dL (0.2-1.0); BUN - BLOOD UREA NITROGEN 17 mg/dL (6-20); CALCIUM 9.2 mg/dL (8.5-10.3); CARBON DIOXIDE - CO2 21 mmol/L (21-32); CHLORIDE 110 mmol/L (101-111); CREATININE 1.2 mg/dL (0.6-1.2); GFR - MDRD 72 (>89); GLUCOSE 107 mg/dL (70-100); LIPASE 33 U/L (22-51); SALICYLATE < 6.0 mg/dL; SODIUM 145 mmol/L (135-145); TOTAL PROTEIN 8.3 g/dL (6.7-8.2)
[2018-10-03 01:09] LABS: AMPHETAMINE SCREEN,URINE NEGATIVE (NEGATIVE); BENZODIAZEPINES SCREEN, URINE NEGATIVE (NEGATIVE); CLARITY,URINE CLEAR (CLEAR); COCAINE SCREEN URINE NEGATIVE (NEGATIVE); METHADONE SCREEN, URINE NEGATIVE (NEGATIVE); METHAMPHETAMINES SCREEN, URINE NEGATIVE (NEGATIVE); OPIATE SCREEN, URINE NEGATIVE (NEGATIVE); OXYCODONE SCREEN, URINE NEGATIVE (NEGATIVE); PROPOXYPHENE SCREEN, URINE NEGATIVE (NEGATIVE); TRICYCLIC ANTIDEPRESSANT,URINE NEGATIVE (NEGATIVE)
[2018-10-03 13:32] LABS: BASOPHILS # (AUTO) 0.1 10^3/uL (0.0-0.1); BASOPHILS % (AUTO) 0.5 %; EOSINOPHILS # (AUTO) 0.1 10^3/uL (0.0-0.7); EOSINOPHILS % (AUTO) 1.3 %; HGB - HEMOGLOBIN 14.9 g/dL (14.0-18.0); LYMPHOCYTES # (AUTO) 2.4 10^3/uL (1.5-3.5); LYMPHOCYTES % (AUTO) 21.7 %; MEAN CORPUSCULAR HEMOGLOBIN 27.8 pg (27.0-31.0); MEAN CORPUSCULAR HGB CONC 33.7 g/dL (32.0-36.0); MEAN CORPUSCULAR VOLUME 82.5 fL (80.0-94.0); MEAN PLATELET VOLUME 9.2 fL (7.4-11.4); MONOCYTES # (AUTO) 0.9 10^3/uL (0.0-1.0); MONOCYTES % (AUTO) 7.7 %; NEUTROPHILS # (AUTO) 7.6 10^3/uL (1.5-6.6); NEUTROPHILS % (AUTO) 68.2 %; PLT - PLATELET COUNT 297 10^3/uL (130-450); RED BLOOD COUNT 5.36 10^6/uL (4.70-6.10); RED CELL DISTRIBUTION WIDTH 13.8 % (12.0-15.0); WHITE BLOOD COUNT 11.1 x10^3/uL (4.8-10.8)
[2018-10-03 13:49] LABS: ALBUMIN 4.2 g/dL (3.2-5.5); ALBUMIN/GLOBULIN RATIO 1.2 (1.0-2.2); ALKALINE PHOSPHATASE 83 IU/L (42-121); ALT ALANINE AMINOTRANSFERASE 20 IU/L (10-60); AST ASPARTATE AMINOTRANSFERASE 22 IU/L (10-42); BILIRUBIN,TOTAL 0.7 mg/dL (0.2-1.0); BUN - BLOOD UREA NITROGEN 12 mg/dL (6-20); CALCIUM 9.3 mg/dL (8.5-10.3); CARBON DIOXIDE - CO2 22 mmol/L (21-32); CHLORIDE 108 mmol/L (101-111); CREATININE 0.8 mg/dL (0.6-1.2); GFR - MDRD 115 (>89); GLUCOSE 82 mg/dL (70-100); LIPASE 29 U/L (22-51); SODIUM 142 mmol/L (135-145); TOTAL PROTEIN 7.7 g/dL (6.7-8.2)
[2018-10-03] MEDS ORDERED: NICOTINE 21 MG PATCH TOP STA (15:44)
[2018-10-03 17:50] VITALS: BP 163/91
== END 2018-10-03 17:50 ==
LOC: EDUNIT# → ED 00:28
DX: F32.9 Major depressive disorder, single episode, unspecified (principal); R45.851 Suicidal ideations; F10.129 Alcohol abuse with intoxication, unspecified; Y90.7 Blood alcohol level of 200-239 mg/100 ml; S80.212A Abrasion, left knee, initial encounter; S80.812A Abrasion, left lower leg, initial encounter; S80.811A Abrasion, right lower leg, initial encounter; S80.12XA Contusion of left lower leg, initial encounter; S80.11XA Contusion of right lower leg, initial encounter; X58.XXXA Exposure to other specified factors, initial encounter; F17.200 Nicotine dependence, unspecified, uncomplicated
CPT/HCPCS: 36415; 80320; 80329; 81003; 83690; 96360; 99285; A9270; 80053; 80306; 80307; 81001; 84443; 85025; 87086

== ENCOUNTER 2019-02-13 17:21 | Emergency (ER) | payer MEDICAID, OTHER ==
--- NOTE | 2019-02-13 18:53 | ED Physician Documentation ---
History of Present Illness - Stated complaint Stated Complaint: R ANKLE PX - Chief complaint Chief Complaint: Ext Problem - Additonal information Additional information: Pt was running down a hill several weeks ago and felt a pop in his R ankle and had difficulty walking on it. It has been slowly improving but today he was being more active than he has been and he tripped over his dog and he felt another cracking sensation and has had increased pain. No numbness or weakness. He has fractured this ankle before in the past. Review of Systems Skin: denies: Rash Musculoskeletal: reports: Extremity pain PD PAST MEDICAL HISTORY - Past Medical History Cardiovascular: None Respiratory: None Neuro: None Endocrine/Autoimmune: None GI: None : None HEENT: None Psych: Anxiety, ADD/ADHD Musculoskeletal: None, Other Derm: None - Past Surgical History Past Surgical History: Yes General: Other Ortho: Other - Present Medications Home Medications: Ambulatory Orders Medication Instructions Recorded Confirmed Dextroamphetamine/Amphetamine 10 mg PO 1400 07/06/18 10/03/18 [Adderall 10 mg Tablet] Dextroamphetamine/Amphetamine 25 mg PO DAILY 07/06/18 10/03/18 [Adderall Xr 25 mg Capsule] busPIRone [Buspar] 10 mg PO TID #90 tablet 07/06/18 10/03/18 Lisinopril 10/03/18 Hydrocodone/Acetaminophen 1 - 2 each PO Q6H PRN #10 tablet 02/13/19 [Hydrocodon-Acetaminophen 5-325] - Allergies Allergies/Adverse Reactions: Allergies Allergy/AdvReac Type Severity Reaction Status Date / Time No Known Drug Allergies Allergy Verified 07/05/18 22:46 - Social History Does the pt smoke?: Yes Smoking Status: Current every day smoker Does the pt drink ETOH?: Yes Does the pt have substance abuse?: No - Immunizations Immunizations are current?: Yes - POLST Patient has POLST: No POLST Status: Full Code PD ED PE NORMAL - Vitals Vital signs reviewed: Yes - General General: Alert and oriented X 3, No acute distress - HEENT HEENT: Atraumatic - Respiratory Respiratory: No respiratory distress - Abdomen Abdomen: Non distended - Derm Derm: Warm and dry - Extremities Extremities: Other (Right ankle has mild edema and bruising under the lateral malleolus and posterior medial malleolus. No gross deformity. No foot tenderness. ROM of ankle causes pain. Cap refill brisk and SILT.) - Neuro Neuro: Alert and oriented X 3 - Psych Psych: Normal mood, Normal affect Results - Vitals Vitals: Oxygen O2 Source Room air - Rads (name of study) CT ankle WO Radiology: Other (Non discplaced post malleolus fracture) Procedures - Splint (location) R ankle Splint applied by: Tech Type of splint: Fiberglass, Short leg, Posterior, Stirrup Other: Patient tolerated well, No complications, Neurovascular intact, Crutches provided PD MEDICAL DECISION MAKING - ED course ED course: Pt presents with ankle pain, XR obtained showing possible post mal fracture. CT WO obtained confirming the posterior malleolus fracture and showing signs of past injury consistent with his history. Limb is neurovascularly intact. AO splint applied, he remains neurovascularly intact. Crutches given, and ortho follow up and NWB status reviewed. Pain control discussed and hydrocodone prescribed with precautions. Pt agrees and was discharged home. Departure - Departure Disposition: Home, Self Care Clinical Impression: Fracture, posterior malleolus Qualifiers: Encounter type: initial encounter Fracture type: closed Laterality: right Qualified Code(s): S82.391A - Other fracture of lower end of right tibia, initial encounter for closed fracture Condition: Good Follow-Up: Hao Ozuna MD [Provider Admit Priv/Credential] - Within 1 week Prescriptions: Hydrocodone/Acetaminophen [Hydrocodon-Acetaminophen 5-325] 1 - 2 each PO Q6H PRN #10 tablet PRN Reason: pain Comments: You have a fracture of your posterior malleolus, which is the back part of your ankle. Right now the pieces of bone are not out of place, and this should heal hopefully without need for surgery. Use your crutches and do not bear weight on your leg until you are cleared by an orthopedist/bone specialist. You should follow-up for a repeat x-ray and examination with an orthopedist in the next week. Dr. Ozuna is one orthopedist that you may follow up with. If you are developing severe pain, numbness or weakness in the leg, you may return to the emergency department. Try to control your pain with Tylenol, you may use the hydrocodone for breakthrough pain. Do not drink alcohol or drive while taking narcotic pain medication. Note that many narcotic pain relievers also contain Tylenol/acetaminophen. Please ensure that your total dose of acetaminophen from all sources does not exceed 3 g (3000 mg) per day. You may get constipated while on this medication. Take a stool softener such as Colace twice a day while you are on it. Also add an [id number] laxative such as senna or MiraLAX on any day that you do not have a bowel movement. If you received a narcotic pain medication or sedative while in the emergency department, do not drive for the next 24 hours. Discharge Date/Time: 02/13/19 22:50
--- NOTE | 2019-02-13 19:30 | XRAY Report ---
Reason: right ankle injury Procedure Date: 02/13/2019 Accession Number: [id number] / [id number] Procedure: XR - Ankle 3 View RT CPT Code: Final Report FULL RESULT: EXAM: RIGHT ANKLE RADIOGRAPHY EXAM DATE: 02/13/2019 07:02 PM. CLINICAL HISTORY: Trauma, pain. COMPARISON: None. TECHNIQUE: 3 views. FINDINGS: Bones: Possible nondisplaced posterior malleolar fracture versus atypical ossicle and calcifications due to old trauma or inflammatory disease. No other evidence of fracture or bone lesion. Joints: Symmetrical mortise. Small effusion. Soft Tissues: Minimal soft tissue swelling over the lateral malleolus. Soft tissue calcification posterior to the posterior malleolus and extending proximally in the interosseous space on frontal view. IMPRESSION: Evidence of chronic posttraumatic or inflammatory disease at the posterior malleolar/interosseous ligament level; cannot exclude superimposed nondisplaced posterior malleolar fracture. RADIA
[2019-02-13] MEDS ORDERED: ACETAMINOPHEN 325 MG TABLET PO STA (20:34)
--- NOTE | 2019-02-13 21:35 | CT Report ---
Reason: Ankle to assess for fracture Procedure Date: 02/13/2019 Accession Number: [id number] / [id number] Procedure: CT - LOWER EXTREMITY WO - RT CPT Code: Final Report FULL RESULT: EXAM: RIGHT ANKLE/HINDFOOT CT WITHOUT CONTRAST EXAM DATE: 02/13/2019 08:54 PM. CLINICAL HISTORY: Ankle to assess for fracture. COMPARISON: ANKLE 3 VIEW RT 02/13/2019 6:45 PM. TECHNIQUE: Thin-section axial images were acquired of the ankle/hindfoot without contrast. Post-processing: Coronal and sagittal reformats. Other: None. In accordance with CT protocol optimization, one or more of the following dose reduction techniques were utilized for this exam: automated exposure control, adjustment of mA and/or KV based on patient size, or use of iterative reconstructive technique. FINDINGS: There is an acute nondisplaced posterior malleolar fracture without significant fracture gap. Adjacent soft tissue edema is seen. Along the posterior and lateral aspects of the distal tibia and overlying the acute fracture, is an area of periosteal reaction versus soft tissue ossification representing sequelae from prior trauma or an infectious/inflammatory etiology. Within the calcaneus is a large lipoma measuring 3.1 x 3.9 x 2.1 cm. There is a focal area of internal ossification. No pathologic fracture is seen. No additional fractures are present. The remaining soft tissues are normal. IMPRESSION: 1. Nondisplaced posterior malleolar fracture. 2. Periosteal reaction versus soft tissue ossification along the posterolateral aspect of the distal tibia and overlying the region of the acute fracture. The appearance may be a result of prior injury in this region or sequelae of an infectious/inflammatory process. 3. Large intraosseous calcaneal lipoma. RADIA
[2019-02-13 22:45] VITALS: BP 129/88
== END 2019-02-13 22:50 | disposition home or self-care (01) ==
LOC: ED 17:21
DX: S82.391A Other fracture of lower end of right tibia, initial encounter for closed fracture (principal); W01.0XXA Fall on same level from slipping, tripping and stumbling without subsequent striking against object, initial encounter; F17.200 Nicotine dependence, unspecified, uncomplicated
CPT/HCPCS: 29515; 73610; 73700; 99283; 99284; A9270